=== PATIENT | female | born 1970 | race Caucasian/White ===

== ENCOUNTER 2021-06-17 09:20 | Emergency (ER) | payer BC, SELFPAY ==
[2021-06-17 09:29] VITALS: BP 119/82; PULSE 81; RESP 16; TEMP 36.5; O2SAT 99; BMI 24.2
--- NOTE | 2021-06-17 09:39 | XR_ITS ---
WS: [id number] Right hip, 2 views standing, 06/17/2021 Clinical Data: fall Comparison: None. Findings: No fractures or dislocations are seen. The right hip joint is intact. The soft tissues are not remark able. The adjacent pelvis is normal. There is an acetabular lip. XR/XR hip RT 2-3V wo/w pel* [id number] Impression: 1. Negative for right hip fracture. 2. Minimal osteoarthritis with an acetabular lip. Tonnis classification: grade 1: sclerosis of femoral head and acetabulum or sli ght joint space narrowing or slight lipping at joint margins
--- NOTE | 2021-06-17 09:39 | XR_ITS ---
WS: [id number] Sacrum and coccyx, 3 views, 06/17/2021 Clinical Data: fall Comparison: None. Findings: No fractures or dislocations are seen. The SI joints and pubic symphysis are unremarkable. No bone de struction or erosion is seen. XR/XR sacrum coccyx min 2V [id number] Impression: Negative sacrum and coccyx.
--- NOTE | 2021-06-17 09:40 | W.ED.FALL ---
HPI - Fall General: Chief Complaint: Fall Stated Complaint: fall Time Seen by Provider: 06/17/21 09:24 History of Present Illness: Patient complains about back and right hip pain after a fall last night that occurred while she was walking the dog she tripped while on the right side of her low back. complaint: fall Onset (ago): hour(s) Fall from: standing Location of injury: back and pelvis Associated symptoms-after fall: Denies abdominal pain, chest pain or headache(s) Review of Systems Const: Denies: fever(s), chills or body aches Eyes: Denies: eye discomfort ENMT: Denies: throat pain Card: Denies: chest pain Resp: Denies: dyspnea GI: Denies: abdominal pain, nausea or vomiting Musc: Reports: back pain (Pain with coccyx area and right hip. Patient applied heat and was better w) and other (Patient did ambulate after the fall last night. When she woke up this morn) Skin/Breast: Denies: rash Neuro: Denies: headache(s) Psych: Denies: depression or suicidal ideation Physical Exam Const: COMMON NORMALS: no acute distress, patient oriented x3 and alert HENMT: COMMON NORMALS: normocephalic HEAD & SCALP: normocephalic Eye: COMMON NORMALS: EOMs intact bilaterally Neck/C-Spine: COMMON NORMALS: no JVD Resp: COMMON NORMALS: normal respiratory effort and No use of accessory muscles Cardio: COMMON NORMALS: no JVD GI: INSPECTION: Yes normal to inspection Back/Pelvis: PELVIS: Yes Other pelvic findings (Pain SI area right side, has full range of motion of the leg.) SACRUM: tenderness COCCYX: Coccyx tenderness present and Other pelvic findings (Pain SI area right side, has full range of motion of the leg.) Extremity: COMMON NORMALS: normal to inspection and full ROM Neuro: COMMON NORMALS: patient oriented x3 SENSORIUM/ORIENTATION: Yes alert Psych: COMMON NORMALS: mental status grossly normal Skin: COMMON NORMALS: no rashes or lesions noted GENERAL SKIN EXAM: no rashes or lesions noted Course Vital Signs: Vital signs: Vital Signs Temperature 97.7 F 06/17/21 09:29 Pulse Rate 81 06/17/21 09:29 Respiratory Rate 16 06/17/21 09:29 Blood Pressure 119/82 06/17/21 09:29 Pulse Oximetry 99 06/17/21 09:29 MDM - Fall Medical Decision Making Patient presents with pain to coccyx sacral right hip area. Patient is able ambulate. X-rays negative for any concerning injuries from the fall. Patient encouraged take medication, apply ice, and follow-up primary care provider if no significant improvement. Lab Data Radiology Impressions Hip/Pelvis X-Ray 06/17/21 09:39 Impression: 1. Negative for right hip fracture. 2. Minimal osteoarthritis with an acetabular lip. Tonnis classification: grade 1: sclerosis of femoral head and acetabulum or slight joint space narrowing or slight lipping at joint margins Sacrum and Coccyx X-Ray 06/17/21 09:39 Impression: Negative sacrum and coccyx. Discharge Plan Discharge Patient Disposition: Home Clinical Impression: Contusion Qualifiers: Encounter type: initial encounter Contusion area: lower back Qualified Code(s): S30.0XXA - Contusion of lower back and pelvis, initial encounter Condition: Stable Prescriptions: New Celebrex 100 mg capsule 100 mg PO BID Qty: 20 0RF Discharge Orders: Discharge ED (Routine); Ordered 06/17/21 Ordered By: Jah Holder Referrals: Hay Jimenez [Primary Care Provider] - Discharge Diet: Usual diet Discharge Activity: Resume usual activity Patient Instructions: Contusion in Adults (ED) Activity Restrictions/Additional Instructions: Follow-up with medical provider as directed. Take medications as prescribed. Return to the ER or your medical provider if condition worsens. Please read and understand discharge instructions. If any questions ask please. Coding Level of Care Code ED Blood Bank Order Control Clerk for Miguel Fwkarin Exam Comprehensive
[2021-06-17] MEDS: ketorolac 60 mg/2 mL INJ IM (10:15)
== END 2021-06-17 10:40 | disposition home or self-care (01) ==
PROVIDERS: Emergency Provider Nurse Practitioner Family; PCP Family Medicine
DX: S30.0XXA Contusion of lower back and pelvis, initial encounter (principal); W01.0XXA Fall on same level from slipping, tripping and stumbling without subsequent striking against object, initial encounter
CPT/HCPCS: 72220; 73502; 96372; 99283; J1885